=== PATIENT | female | born 1940 | race Two or more races ===

== ENCOUNTER 2025-02-26 20:59 | Emergency (ER) | payer OTHER ==
[~2025-02-26] VITALS: Ht 152.4 cm; Wt 68.0 kg
[2025-02-26] MEDS ORDERED: NIFEDIPINE 10 MG CAPSULE PO ONE (22:15)
[2025-02-26] MEDS ORDERED: ACETAMINOPHEN 500 MG GEL..CAP PO ONE (22:15)
[2025-02-26 23:10] LABS: BASO % 0.5 % (0.1-1.2); EOS # 0.06 (0.04-0.54); EOS % 0.5 % (0.7-7.0); LYMPH # 1.64 (1.18-3.74); LYMPH % 13.2 % (19.3-53.1); MEAN PLATELET VOLUME 9.30 fl (9.4-12.4); MONO # 0.81 (0.24-0.82); MONO % 6.5 % (4.7-12.5); NEUT # 9.80 (1.56-6.13); NEUT % 78.8 % (34.0-71.1); RED CELL DISTRIBUTION WIDTH 14.0 % (11.6-14.4)
[2025-02-26 23:20] LABS: INR 0.98
[2025-02-26 23:26] LABS: ALT/SGPT 15.0 U/L (12-78); AST/SGOT 14.0 U/L (15-37); BILIRUBIN TOTAL 0.49 mg/dL (0.3-1.2); BUN CREA RATIO 23.0 (7.0-25.0); CREATININE SERUM 0.77 mg/dL (0.55-1.02); GFR 71.77; GLOBULINA 3.8 G/DL (2.4-3.5); GLUCOSE FASTING 105.0 mg/dL (65-100); OSMOLALITY SERUM 285.0 MOSM/KG (275-295)
[2025-02-26] MEDS ORDERED: NORFLEX100MG PO (23:42)
[2025-02-26] MEDS ORDERED: AZITHROMYCIN500 MG PO (23:43)
[2025-02-26] MEDS ORDERED: PEPCID AC20 MG PO (23:43)
== END 2025-02-26 23:57 | disposition home or self-care (01) ==
LOC: ER
PROVIDERS: General Practice
DX: F41.8 Other specified anxiety disorders (principal); Z88.6 Allergy status to analgesic agent; R07.89 Other chest pain; I10 Essential (primary) hypertension